=== PATIENT | male | born 1955 | race Caucasian/White ===

== ENCOUNTER → 2018-03-20 | Outpatient (CLI) | payer OTHER, MEDICARE | LOC: M ONCR 08:46 | DX: C61 Malignant neoplasm of prostate (principal) | CPT/HCPCS: G0463 ==

== ENCOUNTER → 2018-05-20 | Outpatient (CLI) | payer OTHER, MEDICARE | LOC: M SMT 08:58 | DX: C61 Malignant neoplasm of prostate (principal) | CPT/HCPCS: 76872; A4648 ==

== ENCOUNTER 2018-06-03 10:03 | Outpatient (RCR) | payer OTHER | END 2018-06-10 | LOC: M ONCR 10:03 | DX: C61 Malignant neoplasm of prostate (principal) | CPT/HCPCS: 77300 ==

== ENCOUNTER 2018-06-11 15:46 | Outpatient (RCR) | payer OTHER | END 2018-07-11 | LOC: M ONCR 15:46 | DX: C61 Malignant neoplasm of prostate (principal) | CPT/HCPCS: 77336 ==

== ENCOUNTER 2018-07-15 10:14 | Outpatient (RCR) | payer OTHER | END 2018-08-10 | LOC: M ONCR 10:14 | DX: C61 Malignant neoplasm of prostate (principal) | CPT/HCPCS: 77300 ==

== ENCOUNTER 2018-08-11 10:37 | Outpatient (RCR) | payer OTHER | END 2018-09-10 | LOC: M ONCR 08-12 10:20 | DX: C61 Malignant neoplasm of prostate (principal) | CPT/HCPCS: 77336 ==

== ENCOUNTER → 2018-09-23 | Outpatient (CLI) | payer OTHER ==
[2018-09-23 14:24] LABS: PROSTATIC SPECIFIC AG MONITOR 0.4 NG/ML (< 4.0)
== END ==
LOC: M ONCR 12:57
DX: C61 Malignant neoplasm of prostate (principal)
CPT/HCPCS: 84153

== ENCOUNTER 2019-01-21 10:42 | Emergency (ER) | payer OTHER ==
[~2019-01-21] VITALS: Ht 180.3 cm; Wt 95.9 kg
[2019-01-21] MEDS ORDERED: MELA3TAB49 PO (11:14)
[2019-01-21] MEDS ORDERED: PRAV80TA2 PO (11:14)
[2019-01-21] MEDS ORDERED: LOMO2.5T PO (11:14)
[2019-01-21] MEDS ORDERED: VITA-122 PO (11:14)
[2019-01-21] MEDS ORDERED: FLOM0.4C39 PO (11:14)
[2019-01-21] MEDS ORDERED: OMEP20CA3 PO (11:14)
[2019-01-21] MEDS ORDERED: MULT1TAB10 PO (12:35)
[2019-01-21 13:14] LABS: BASO # 0.1 10^3/uL (0.0-0.2); BASO % 0.6 % (0.0-1.0); EOS # 0.1 10^3/uL (0.0-0.50); EOS % 0.8 % (0.0-3.0); HEMATOCRIT 47.7 % (42.0-52.0); HEMOGLOBIN 16.1 g/dl (13.5-17.5); LYMPH # 1.6 10^3/uL (1.5-4.5); LYMPH % 19.2 % (24.0-44.0); MEAN CORPUSCULAR HEMOGLOBIN 34.5 pg (27.0-33.0); MEAN CORPUSCULAR HGB CONC 33.8 g/dl (32.0-36.5); MEAN CORPUSCULAR VOLUME 102.4 fl (80.0-96.0); MONO # 0.6 10^3/uL (0.0-0.8); MONO % 7.2 % (0.0-5.0); NEUTROPHILS % 71.6 % (36.0-66.0); PLATELET COUNT, AUTOMATED 116 10^3/uL (150-450); RED BLOOD COUNT 4.66 10^6/uL (4.30-6.10); WHITE BLOOD COUNT 8.4 10^3/uL (4.0-10.0)
[2019-01-21 13:23] LABS: INR 0.94; PROTHROMBIN TIME 12.7 SECONDS (12.1-14.4)
[2019-01-21 13:24] LABS: PARTIAL THROMBOPLASTIN TIME 37.7 SECONDS (25.4-37.6)
[2019-01-21] MEDS ORDERED: NS 1,000 ML IV ONE (13:45)
[2019-01-21 14:08] LABS: BLOOD UREA NITROGEN 9 MG/DL (7-18); CALCIUM LEVEL 9.3 MG/DL (8.8-10.2); CARBON DIOXIDE LEVEL 27 MEQ/L (21-32); CHLORIDE LEVEL 104 MEQ/L (98-107); CREATININE FOR GFR 1.02 MG/DL (0.70-1.30); GLOMERULAR FILTRATION RATE > 60.0 (>49); GLUCOSE, FASTING 104 MG/DL (70-100); POTASSIUM SERUM 4.8 MEQ/L (3.5-5.1); SODIUM LEVEL 136 MEQ/L (136-145)
[2019-01-21] MEDS ORDERED: CLOPIDOGREL 300 MG TAB (PLAVIX) PO STA (16:54)
[2019-01-21] MEDS ORDERED: ASPIRIN 325 MG TAB PO ONE (17:00)
--- NOTE | 2019-01-21 17:06 | REP ---
LEFT LOWER EXTREMITY DOPPLER ARTERIAL ULTRASOUND: 01/21/2019. Clinical history: Left lower extremity pain, ischemic left toes. Findings: No prior study. Left brachial artery artery 160, dorsalis pedis 80, SPANNER OPERATOR 100. KHRIS 0.5. Left lower extremity: PSV: Phasicity: [employer]: 91.6 cm/S monophasic Profunda: 127 cm/S monophasic SFA proximal: 51 cm/S monophasic SFA mid: 48.1 cm/S monophasic SFA distal: 64.8 cm/S monophasic Popliteal: 15.8 cm/S monophasic SPANNER OPERATOR proximal: 26 cm/S monophasic Tibioperoneal trunk: 40.6 cm/S monophasic SPANNER OPERATOR proximal: 27.6 cm/S monophasic SPANNER OPERATOR distal: 22.2 cm/S monophasic SPANNER OPERATOR distal: 25.2 cm/S monophasic Atherosclerotic calcific plaque seen proximally in the SFA and profunda and also at the common femoral artery. There is severe atherosclerotic disease throughout. The KHRIS is abnormal. Monophasic wave forms from mid to distal aorta down to the ankle. Impression: 1. Significant atherosclerotic disease with hard plaque seen scattered throughout. This is significant atherosclerotic disease without occlusion. Electronically Signed by Huber Resendiz MD 01/21/2019 04:57 P
[2019-01-21] MEDS ORDERED: TRAM50TA2 PO (17:11)
[2019-01-21] MEDS ORDERED: ASPI81TA85 PO (17:11)
[2019-01-21] MEDS ORDERED: PLAV1TAB2 PO (17:11)
[2019-01-21] MEDS ORDERED: PROT1TAB2 PO (17:11)
[2019-01-21 17:15] VITALS: BP 180/73
--- NOTE | 2019-01-21 21:02 | ECGEPIP ---
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 Order Number: [id number] Reading MD: Meghann Spencer Measurements Intervals [place] Rate: 84 P: 58 ND: 146 QRS: -3 QRSD: 94 T: 11 QT: 390 QTc: 461 Interpretive Statements SINUS RHYTHM NONSPECIFIC ST & T-WAVE ABNORMALITY Electronically Signed On 01-21-2019 21:02:08 EDT by Meghann Spencer
== END 2019-01-21 17:29 | disposition home or self-care (01) ==
LOC: M ED 10:42
DX: I73.9 Peripheral vascular disease, unspecified (principal); I74.9 Embolism and thrombosis of unspecified artery; K21.9 Gastro-esophageal reflux disease without esophagitis; E55.9 Vitamin D deficiency, unspecified; N40.0 Benign prostatic hyperplasia without lower urinary tract symptoms; Z79.899 Other long term (current) drug therapy; Z79.82 Long term (current) use of aspirin; Z79.01 Long term (current) use of anticoagulants; F17.210 Nicotine dependence, cigarettes, uncomplicated